=== PATIENT | female | born 1930 | race Caucasian/White ===

== ENCOUNTER → 2017-05-06 | Outpatient (CLI) | payer OTHER ==
[~2017-05-06] MED LIST: CARDIZEM CD180 MG PO; DIOVAN320 MG PO; LANOXIN 0.120.125 M1 PO; PEPCID20 MG PO
--- NOTE | 2017-05-06 09:54 | 2DMMODE ---
[place] [address] 2 D/M-MODE ECHOCARDIOGRAM Name: SARAJANCAT E Room: [facility]#: [id number] Admission: 05/06/17 Attend Phys: Walker Ugarte, Discharge: Date of : [birth year] Date of Service: 05/06/17 0953 Report #: [id number] THIS REPORT FOR: //name// APPROVED REPORT Study performed: 05/06/2017 07:54:38 EXAM: Comprehensive 2D, Doppler, and color-flow Echocardiogram Patient Location: Out-Patient Status: routine BSA: 1.72 HR: 62 bpm BP: 146/80 mmHg Rhythm: Atrial Fibrillation Other Information Study Quality: Good Indications Mitral Valve Disease 2D Dimensions LVEF(%): 64.68 (>50%) IVSd: 14.63 (7-11mm) LVOT Diam: 20.57 (18-24mm) LVDd: 47.12 mm PWd: 11.94 (7-11mm) Ascending Ao: 27.04 (22-36mm) LVDs: 30.48 (25-40mm) Aortic Root: 30.74 mm Ralph's LVEF: 64.68 % Volumes Left Atrial Volume (Systole) LA ESV Index: 33.90 mL/m2 Aortic Valve AoV Peak Jeff.: 1.49 m/s AO Peak Gr.: 8.89 mmHg LVOT Max P.47 mmHg AO Mean Gr.: 4.73 mmHg LVOT Mean P.66 mmHg LVOT Max V: 0.61 m/s AO V2 VTI: 31.29 cm LVOT Mean V: 0.37 m/s [place] (VTI): 1.43 cm2 LVOT V1 VTI: 13.47 cm Mitral Valve MV Decel. Time: 372.89 [place] [address] 2 D/M-MODE ECHOCARDIOGRAM Name: SARAJANCAT Room: [facility]#: [id number] Admission: 05/06/17 Attend Phys: Walker Ugarte, Discharge: Date of : [birth year] Date of Service: 05/06/17 0953 Report #: [id number] MV PHT: 108.14 ms MVA (PHT): 2.03 cm2 TDI Medial E' Jeff.: 0.10 m/s Lateral E' Jeff.: 0.07 m/s Pulmonary Valve PV Peak Jeff.: 0.99 m/s PV Peak Gr.: 3.90 mmHg Tricuspid Valve TR Peak Gr.: 21.65 mmHg RVSP: 26.65 mmHg Left Ventricle The left ventricle is normal size. There is normal LV segmental wall motion. There is normal left ventricular wall thickness. Left ventricular systolic function is normal. The left ventricular ejection fraction is within the normal range. LVEF is 55%. This study is not technically sufficient to allow evaluation of the LV diastolic function due to atrial fibrillation. Right Ventricle The right ventricle is normal size. The right ventricular systolic function is normal. Atria Left atrium is moderately dilated. Right atrium is moderately dilated. Aortic Valve Mild aortic valve sclerosis. No aortic regurgitation is present. There is no aortic valvular stenosis. Mitral Valve Moderate mitral annular calcification. Mild to moderate mitral regurgitation. No evidence of mitral valve stenosis. Tricuspid Valve The tricuspid valve is normal in structure. Mild tricuspid regurgitation. The RVSP is __26.6 mmHg. Pulmonic Valve The pulmonary valve is normal in structure. Mild pulmonic regurgitation[place] [address] 2 D/M-MODE ECHOCARDIOGRAM Name: SARAJANCAT E [id number] Admission: 05/06/17 Attend Phys: Walker Ugarte, Discharge: Date of : [birth year] Date of Service: 05/06/17 0953 Report #: [id number] The aortic root is normal in size. IVC is normal in size and collapses with >50% inspiration Pericardium There is no pericardial effusion. <Conclusion> The left ventricle is normal size. There is normal left ventricular wall thickness. Left ventricular systolic function is normal. The left ventricular ejection fraction is within the normal range. LVEF is 55%. This study is not technically sufficient to allow evaluation of the LV diastolic function due to atrial fibrillation. The right ventricle is normal size. Left atrium is moderately dilated. Right atrium is moderately dilated. Mild aortic valve sclerosis. No aortic regurgitation is present. There is no aortic valvular stenosis. Moderate mitral annular calcification. Mild to moderate mitral regurgitation. No evidence of mitral valve stenosis. The tricuspid valve is normal in structure. Mild tricuspid regurgitation. The RVSP is __26.6 mmHg. IVC is normal in size and collapses with >50% inspiration There is no pericardial effusion. There is no pericardial effusion. There is normal LV segmental wall motion. <ELECTRONICALLY SIGNED> By: Leander Min MD, FACC 05/06/17 [id number] Leander Min MD, FACC /INF
== END ==
LOC: M.CRD 07:59
DX: I08.3 Combined rheumatic disorders of mitral, aortic and tricuspid valves (principal); I48.91 Unspecified atrial fibrillation

== ENCOUNTER 2017-05-15 00:22 | Emergency (ER) | payer OTHER ==
[~2017-05-15] VITALS: Ht 154.9 cm; Wt 72.6 kg
[2017-05-15] MEDS ORDERED: DIOVAN320 MG PO (00:40)
[2017-05-15] MEDS ORDERED: PEPCID20 MG PO (00:40)
[2017-05-15] MEDS ORDERED: CARDIZEM CD180 MG PO (00:40)
[2017-05-15] MEDS ORDERED: LANOXIN 0.120.125 M1 PO (00:41)
[2017-05-15 01:02] LABS: ABSOLUTE BASOPHILS 0.1 thou/uL (0.0-0.2); ABSOLUTE EOSINOPHILS 0.1 thou/uL (0.0-0.7); ABSOLUTE LYMPHOCYTES 2.4 thou/uL (0.8-5.3); ABSOLUTE NEUTROPHILS 6.1 thou/uL (1.6-8.1); EOSINOPHILS 1.1 %; HEMATOCRIT 47.4 % (37.0-47.0); LYMPHOCYTES 24.9 %; MCH 30.5 pg (26.0-34.0); MCHC 33.8 g/dL (28.0-37.0); MCV 90.3 fL (80.0-100.0); MPV 9.1 fl. (7.2-11.1); NUCLEATED RBCS 0 /100WBC; PLATELET COUNT* 266 thou/uL (150-400); RBC 5.25 mil/uL (4.20-5.00); RDW-CV 13.5 % (10.5-14.5); WBC 9.7 thou/uL (4.0-11.0)
[2017-05-15 01:04] LABS: ANION GAP 8 mmol/L (7-16); BUN 29 mg/dL (7-18); CALCIUM 9.1 mg/dL (8.5-10.1); CHLORIDE 104 mmol/L (98-107); CO2 27 mmol/L (21-32); CREATININE 1.2 mg/dL (0.6-1.3); GLUCOSE 134 mg/dL (70-99); POTASSIUM 4.2 mmol/L (3.5-5.1); SODIUM 139 mmol/L (136-145)
[2017-05-15 01:12] LABS: TROPONIN-I LEVEL <0.06 ng/mL (<0.06)
[2017-05-15 01:34] LABS: URINE BILIRUBIN NEGATIVE (Negative); URINE BLOOD NEGATIVE (Negative); URINE CLARITY CLEAR; URINE COLOR YELLOW; URINE GLUCOSE-RANDOM NEGATIVE (Negative); URINE KETONES NEGATIVE (Negative); URINE LEUKOCYTES-REFLEX NEGATIVE (Negative); URINE NITRITE-REFLEX NEGATIVE (Negative); URINE PROTEIN NEGATIVE (Negative); URINE SPECIFIC GRAVITY <= 1.005 (1.005-1.030); URINE UROBILINOGEN 0.2 E.U./dl (0.2-1.0)
[2017-05-15 01:54] VITALS: BP 158/62
== END 2017-05-15 01:55 | disposition home or self-care (01) ==
LOC: M.ERS 00:22
PROVIDERS: Emergency Medicine
DX: I10 Essential (primary) hypertension (principal); R42 Dizziness and giddiness; I48.91 Unspecified atrial fibrillation; Z88.0 Allergy status to penicillin; Z88.8 Allergy status to other drugs, medicaments and biological substances

== ENCOUNTER → 2018-06-14 | Outpatient (CLI) | payer OTHER ==
--- NOTE | 2018-06-14 09:53 | 2DMMODE ---
[place] [address] 2 D/M-MODE ECHOCARDIOGRAM Name: SARAJANCAT E Room: [facility]#: [id number] Admission: 06/14/18 Attend Phys: Walker Ugarte, Discharge: Date of : [birth year] Date of Service: 06/14/18 0953 Report #: [id number] THIS REPORT FOR: //name// APPROVED REPORT Study performed: 06/14/2018 08:48:49 EXAM: Comprehensive 2D, Doppler, and color-flow Echocardiogram Patient Location: Out-Patient Status: routine BSA: 1.74 HR: 72 bpm BP: 146/80 mmHg Other Information Study Quality: Good Indications Mitral Valve Disease Atrial Fibrillation 2D Dimensions IVSd: 12.40 (7-11mm) LVOT Diam: 20.21 (18-24mm) LVDd: 46.58 mm PWd: 12.76 (7-11mm) Ascending Ao: 24.98 (22-36mm) LVDs: 26.05 (25-40mm) Aortic Root: 27.24 mm Volumes Left Atrial Volume (Systole) LA ESV Index: 51.00 mL/m2 Aortic Valve AoV Peak Jeff.: 1.17 m/s AO Peak Gr.: 5.51 mmHg LVOT Max P.71 mmHg AO Mean Gr.: 3.24 mmHg LVOT Mean P.83 mmHg LVOT Max V: 0.65 m/s AO V2 VTI: 23.30 cm LVOT Mean V: 0.41 m/s [place] (VTI): 1.91 cm2 LVOT V1 VTI: 13.90 cm Mitral Valve MV Peak Gr.: 8.75 mmHg MV Mean Gr.: 2.80 mmHg MV Decel. Time: 295.92 [place] [address] 2 D/M-MODE ECHOCARDIOGRAM Name: CAT DAVID Room: [facility]#: [id number] Admission: 06/14/18 Attend Phys: Walker Ugarte, Discharge: Date of : [birth year] Date of Service: 06/14/18 0953 Report #: [id number] MV PHT: 85.82 ms MVA (PHT): 2.56 cm2 TDI Medial E' Jeff.: 0.09 m/s Lateral E' Jeff.: 0.09 m/s Pulmonary Valve PV Peak Jeff.: 0.91 m/s PV Peak Gr.: 3.34 mmHg Tricuspid Valve RAP Estimate: 5.00 mmHg TR Peak Gr.: 18.65 mmHg RVSP: 23.65 mmHg PA Pressure: 23.65 mmHg Left Ventricle The left ventricle is normal size. There is normal LV segmental wall motion. Mild concentric left ventricular hypertrophy. Left ventricular systolic function is normal. LVEF is 55-60%. This study is not technically sufficient to allow evaluation of the LV diastolic function due to atrial fibrillation. Right Ventricle The right ventricle is normal size. The right ventricular systolic function is normal. Atria Left atrium is moderately dilated. Right atrium is mildly dilated. Aortic Valve Mild aortic valve sclerosis. No aortic regurgitation is present. There is no aortic valvular stenosis. Mitral Valve There is mild mitral annular calcification. Mild to moderate mitral regurgitation. No evidence of mitral valve stenosis. Tricuspid Valve The tricuspid valve is normal in structure. Mild tricuspid regurgitation. No pulmonary hypertension. Pulmonic Valve The pulmonary valve is normal in structure. Mild [place] [address] 2 D/M-MODE ECHOCARDIOGRAM Name: CAT DAVID Room: [facility]#: [id number] Admission: 06/14/18 Attend Phys: Walker Ugarte, Discharge: Date of : [birth year] Date of Service: 06/14/18 0953 Report #: [id number] Great Vessels The aortic root is normal in size. IVC is normal in size and collapses >50% with inspiration. Pericardium There is no pericardial effusion. <Conclusion> The left ventricle is normal size. Mild concentric left ventricular hypertrophy. Left ventricular systolic function is normal. LVEF is 55-60%. Left atrium is moderately dilated. Right atrium is mildly dilated. Mild aortic valve sclerosis. There is mild mitral annular calcification. Mild to moderate mitral regurgitation. Mild tricuspid regurgitation. Mild pulmonic regurgitation. IVC is normal in size and collapses >50% with inspiration. No pulmonary hypertension. <ELECTRONICALLY SIGNED> By: Walker Ugarte MD, FACC 06/14/18 0953 2 Walker Ugarte MD, FACC /INF
== END ==
LOC: M.CRD 08:22
DX: I08.3 Combined rheumatic disorders of mitral, aortic and tricuspid valves (principal); I48.91 Unspecified atrial fibrillation; I10 Essential (primary) hypertension